=== PATIENT | female | born 1940 | race Caucasian/White ===

== ENCOUNTER 2016-10-30 23:24 | Inpatient (IN) | payer MEDICARE, BC ==
[~2016-10-30] VITALS: Ht 162.6 cm; Wt 126.4 kg
[2016-10-31] VITALS (215 sets, daily range): BP systolic 135–154; BP diastolic 43–93; PULSE 66–76; TEMP 97.1–99.2; O2SAT 61–99
[2016-10-31 00:03] LABS: BASO # 0.1 (0.0-0.2); BASO % 0.4 % (0.0-2.0); EOS # 0.4 (0.0-0.7); EOS % 2.1 % (0-4.0); GRAN # 12.6 (1.4-6.5); GRAN % 72.8 % (42.2-75.2); HEMATOCRIT 40.5 % (37.0-47.0); HEMOGLOBIN 13.4 g/dl (12.5-16.0); LYMPH # 3.9 (1.2-3.4); LYMPH % 22.2 % (20.0-51.0); MEAN CELL VOLUME 88 fl (80.0-100.0); MEAN CORPUSCULAR HEMOGLOBIN 29 pg (27.0-31.0); MEAN CORPUSCULAR HGB CONC 33 g/dl (33.0-37.0); MEAN PLATELET VOLUME 11.1 fl (7.4-10.4); MONO # 0.4 (0.1-0.6); MONO % 2.2 % (1.7-9.3); PLATELET COUNT 313 K/mm3 (130-400); RED BLOOD COUNT 4.63 M/mm3 (4.10-5.30); REDCELL DISTRIBUTION WIDTH-CV 13.5 % (11.5-14.5); WHITE BLOOD COUNT 17.4 K/mm3 (4.8-10.8)
[2016-10-31] MEDS ORDERED: NORVASC 5MG5 MG/TAB PO ×2 (00:10→00:12)
[2016-10-31] MEDS ORDERED: GLUCOPHAGE XR500 M1 PO (00:13)
[2016-10-31] MEDS ORDERED: SYNTHROID0.125 MG/T PO (00:13)
[2016-10-31 00:14] LABS: ANION GAP 15 mmol/L (7-16); BLOOD UREA NITROGEN 31 mg/dL (7-17); CARBON DIOXIDE 24 mmol/L (22-30); CHLORIDE 101 mmol/L (98-107); CREATININE, serum 1.07 mg/dL (0.52-1.25); GLUCOSE 202 mg/dL (74-106); SODIUM 140 mmol/L (137-145)
[2016-10-31] MEDS ORDERED: ASPIRIN 81M81 MG/TA2 PO (00:14)
[2016-10-31] MEDS ORDERED: DRISDOL50000 IU PO (00:14)
[2016-10-31] MEDS ORDERED: PRAVACHOL80 MG PO (00:15)
[2016-10-31 00:25] LABS: TROPONIN-I < 0.012 ng/mL (0.000-0.034)
[2016-10-31 01:13] LABS: PH 6 (5-8); SQUAMOUS EPITHELIAL 0-2 /hpf; URINE APPEARANCE Clear; URINE BACTERIA None Seen /hpf; URINE BILIRUBIN Negative (NEGATIVE); URINE BLOOD Negative (NEGATIVE); URINE COLOR Yellow; URINE GLUCOSE Negative (NEGATIVE); URINE KETONE Negative (NEGATIVE); URINE RBC 0-2 /hpf; URINE UROBILINOGEN Negative (NEGATIVE); URINE WBC 0-2 /hpf
[2016-10-31 06:23] LABS: CALCIUM 9.2 mg/dL (8.4-10.2); CREATININE, serum 0.98 mg/dL (0.52-1.25); POTASSIUM 4.5 mmol/L (3.4-5.0)
[2016-10-31 06:54] LABS: TROPONIN-I 0.035 ng/mL (0.000-0.034)
[2016-11-01 03:53] VITALS: BP 148/46; PULSE 68; TEMP 98.3
[2016-11-01 07:06] LABS: ADD PATHOLOGY DIFF REVIEW NO
[2016-11-01 07:32] LABS: MEAN CELL VOLUME 87 fl (80.0-100.0); MEAN CORPUSCULAR HGB CONC 33 g/dl (33.0-37.0); MEAN PLATELET VOLUME 11.9 fl (7.4-10.4); RED BLOOD COUNT 3.97 M/mm3 (4.10-5.30); REDCELL DISTRIBUTION WIDTH-CV 13.3 % (11.5-14.5); WHITE BLOOD COUNT 7.6 K/mm3 (4.8-10.8)
[2016-11-01 07:36] LABS: CALCIUM 9.2 mg/dL (8.4-10.2); CREATININE, serum 0.85 mg/dL (0.52-1.25); HEMATOCRIT 34.6 % (37.0-47.0); HEMOGLOBIN 11.3 g/dl (12.5-16.0); MAGNESIUM 1.7 mg/dL (1.6-2.3); MEAN CORPUSCULAR HEMOGLOBIN 28 pg (27.0-31.0); PLATELET COUNT 192 K/mm3 (130-400); POTASSIUM 4.3 mmol/L (3.4-5.0)
[2016-11-01 07:57] VITALS: BP 139/62; PULSE 68; TEMP 98
[2016-11-01 08:07] LABS: BAND 1 % (0-10); BASOPHIL 1 % (0-2); EOSINOPHIL 10 % (0-4); NEUTROPHILS 61 % (42.0-75.2); PLATELET ESTIMATE NORMAL (NORMAL); TOTAL CELLS COUNTED 100
[2016-11-01 12:17] VITALS: BP 185/61; PULSE 64; TEMP 98.4
[2016-11-01] MEDS ORDERED: PLAVIX 75MG TAB75 MG PO (13:06)
== END 2016-11-01 15:55 | disposition home or self-care (01) | DRG 65 ==
LOC: COL.ER 23:24 → IMCU 10-31 02:04 → MEDICAL 10-31 16:20
PROVIDERS: Emergency Medicine; Internal Medicine
DX: I63.9 Cerebral infarction, unspecified (principal); E87.2 Acidosis; R29.810 Facial weakness; R47.81 Slurred speech; I10 Essential (primary) hypertension; E11.9 Type 2 diabetes mellitus without complications; F17.210 Nicotine dependence, cigarettes, uncomplicated; E03.9 Hypothyroidism, unspecified; R82.90 Unspecified abnormal findings in urine; Z86.711 Personal history of pulmonary embolism; Z86.73 Personal history of transient ischemic attack (TIA), and cerebral infarction without residual deficits; Z79.84 Long term (current) use of oral hypoglycemic drugs; E78.5 Hyperlipidemia, unspecified; E78.1 Pure hyperglyceridemia; I95.9 Hypotension, unspecified
CPT/HCPCS: 99223-AI; 99239; J0696; J1650; J7030

== ENCOUNTER → 2017-07-10 | Outpatient (CLI) | payer MEDICARE, BC ==
[~2017-07-10] MED LIST: ASPIRIN 81M81 MG/TA2 PO; DRISDOL50000 IU PO; GLUCOPHAGE XR500 M1 PO; NORVASC 5MG5 MG/TAB PO; PLAVIX 75MG TAB75 MG PO; PRAVACHOL80 MG PO; SYNTHROID0.125 MG/T PO
== END ==
LOC: MC.RAD 07:40
DX: Z12.31 Encounter for screening mammogram for malignant neoplasm of breast (principal)

== ENCOUNTER → 2019-07-14 | Outpatient (CLI) | payer MEDICARE, BC | LOC: MC.RAD 11:45 | DX: Z12.31 Encounter for screening mammogram for malignant neoplasm of breast (principal) ==